=== PATIENT | female | born 1960 | race Caucasian/White ===

== ENCOUNTER → 2016-09-16 | Outpatient (CLI) | payer OTHER | LOC: FIMAGING 08:13 | DX: Z12.31 Encounter for screening mammogram for malignant neoplasm of breast (principal); Z80.3 Family history of malignant neoplasm of breast | CPT/HCPCS: G0202 ==

== ENCOUNTER → 2017-09-18 | Outpatient (CLI) | payer OTHER | LOC: FIMAGING 10:55 | PROVIDERS: ATTEND Family Medicine | DX: Z12.31 Encounter for screening mammogram for malignant neoplasm of breast (principal); Z80.3 Family history of malignant neoplasm of breast ==

== ENCOUNTER 2018-05-31 07:59 | Inpatient (IN) | payer OTHER ==
[2018-05-31] MEDS ORDERED: THROMBIN (BOVINE) 20,000 UNIT VIAL TP ONE (10:49)
[2018-05-31] MEDS ORDERED: CHLORHEXIDINE GLUC HIBICLENS 118 ML BTL TP ONE (10:49)
[2018-05-31] MEDS ORDERED: morphINE SR 15 MG TAB PO ONE (10:49)
[2018-05-31] MEDS ORDERED: BACITRACIN 50,000 UNITS/10 ML SYR IRR ONE (10:49)
[2018-05-31] MEDS ORDERED: morphINE PF 0.2 MG in SYRINGE INTRATHECAL 1 SYR IT ONE (10:49)
[2018-05-31] MEDS ORDERED: GABAPENTIN 300 MG CAP PO ONE (10:49)
[2018-05-31] MEDS ORDERED: ceFAZolin 2 GM/DEXTROSE 100 ML IV ONE (10:49)
[2018-05-31] MEDS ORDERED: CITRATE DEXTROSE SOLN 500 ML BAG ONE (10:49)
[2018-05-31] MEDS ORDERED: BUPIVACAINE/EPI 0.25% 30 ML SDV ONE (10:49)
[2018-05-31] MEDS ORDERED: ACETAMINOPHEN 500 MG TAB PO ONE (10:49)
[2018-05-31] MEDS ORDERED: LR 1,000 ML IV ONE (10:51)
--- NOTE | 2018-05-31 12:00 | PDHPUP ---
History & Physical Update H&P update statement: This history and physical update is based on an assessment of the patient which was completed after admission or registration (within 24 hours), but prior to the surgery/procedure. H&P update: H&P reviewed & patient examined, changes noted (Patient has been having right sided symptoms for 2 weeks and all left sided symptoms have improved. We will change her surgery to right sided TLIFs. Consents signed and sited marked. All questions answered.)
[2018-05-31] MEDS ORDERED: MIDAZOLAM 2 MG/2 ML VIAL IVP ONE (12:08)
--- NOTE | 2018-05-31 12:08 | PDANEPAE ---
ANE Past Medical History - Cardiovascular History Hx Hypertension: No Hx Arrhythmias: No Hx Chest Pain: No Hx Coronary Artery / Peripheral Vascular Disease: No Hx CHF / Valvular Disease: No Hx Palpitations: No - Pulmonary History Hx COPD: No Hx Asthma/Reactive Airway Disease: No Hx Recent Upper Respiratory Infection: Yes Hx Oxygen in Use at Home: No Hx Sleep Apnea: No Sleep Apnea Screening Result - Last Documented: Negative Pulmonary History Comment: SINUS INFECTION 01/2018 TREATED WITH ANTIBIOTICS TRAVELED TO CHEST TREATED WITH INHALER - Neurologic History Hx Cerebrovascular Accident: No Hx Seizures: No Hx Dementia: No - Endocrine History Hx Diabetes: No - Renal History Hx Renal Disorders: No - Liver History Hx Hepatic Disorders: No - Neurological & Psychiatric Hx Hx Neurological and Psychiatric Disorders: No - Cancer History Hx Cancer: No - Congenital Disorder History Hx Congenital Disorders: No - GI History Hx Gastrointestinal Disorders: No - Other Health History Other Health History: SPINAL STENOSIS. LT LEG NT DOWN TO CALF AREA - Chronic Pain History Chronic Pain: Yes (LOWER LUMBAR REGION DOWN LT LEG) - Surgical History Prior Surgeries: KYLEIGH BREAST AUGUMENTATION ANE Review of Systems Review of Systems: - Exercise capacity METS (RN): 4 METS ANE Patient History - Allergies Allergies/Adverse Reactions: No Known Allergies Allergy (Verified 05/22/18 11:06) - Home Medications Home Medications: Cholecalciferol Vit D3 [Vitamin D3 (*)] 1,000 units PO DAILY 05/22/18 [Last Taken 05/01/18] Estradiol [Vivelle-Dot 0.025MG (*)] 0.025 mg TD TuFr@0800 05/22/18 [Last Taken 05/30/18] Herbals/Supplements -Info Only 1 ea PO DAILY 05/22/18 [Last Taken 05/01/18] Progesterone, Micronized [Progesterone] 100 mg PO HS 05/22/18 [Last Taken ] traZODone [traZODONE 50MG (*)] 50 mg PO HS 05/22/18 [Last Taken 05/30/18] - NPO status NPO Since - Liquids (Date): 05/31/18 NPO Since - Liquids (Time): 06:00 NPO Since - Solids (Date): 05/30/18 NPO Since - Solids (Time): 20:00 - Smoking Hx Smoking Status: Never smoked ANE Labs/Vital Signs - Vital Signs Blood Pressure: 145/87 Heart Rate: 61 Respiratory Rate: 16 O2 Sat (%): 98 Height: 172.72 cm Weight: 61.235 kg ANE Physical Exam - Airway Mallampati Score: Class 1 - ASA Status ASA Status: I ANE Anesthesia Plan Anesthesia Plan: general endotracheal anesthesia
[2018-05-31] MEDS ORDERED: fentaNYL 100 MCG/2 ML INJ ONE ×2 (12:21→17:02)
[2018-05-31] MEDS ORDERED: PROPOFOL/EMULSION 500 MG/50 ML BOTTLE IV ONE ×2 (12:21→14:56)
[2018-05-31] MEDS ORDERED: PROPOFOL 200 MG/20 ML VIAL ONE (12:21)
[2018-05-31] MEDS ORDERED: ONDANSETRON 4 MG/2 ML VIAL ONE (12:22)
[2018-05-31] MEDS ORDERED: ROCURONIUM 50 MG/5 ML VIAL ONE (12:22)
[2018-05-31] MEDS ORDERED: METOCLOPRAMIDE 10 MG/2 ML VIAL ONE (12:22)
[2018-05-31] MEDS ORDERED: SUGAMMADEX SODIUM 200 MG/2 ML VIAL IVP ONE ×2 (15:12)
[2018-05-31] MEDS ORDERED: NALOXONE HCL 0.4 MG/ML INJ IVP PRN (17:04)
[2018-05-31] MEDS ORDERED: LR 500 ML IV PRN (17:04)
[2018-05-31] MEDS ORDERED: HYDROmorphONE/DILAUDID 2 MG/ML INJ IVP PRN (17:04)
[2018-05-31] MEDS ORDERED: ONDANSETRON 4 MG/2 ML VIAL IVP PRN ×2 (17:04→20:10)
[2018-05-31] MEDS ORDERED: PROMETHAZINE HCL 25 MG/ML INJ IVP PRN (17:04)
[2018-05-31] MEDS ORDERED: MIDAZOLAM 2 MG/2 ML VIAL IVP PRN (17:05)
--- NOTE | 2018-05-31 17:08 | POSTANESTH ---
Post Anesthetic Evaluation Cardiovascular Status: Normal, Stable Respiratory Status: Normal, Stable Level of Consciousness/Mental Status: Can Participate in Eval Pain Control: Adequate, Prn Tx Ordered Nausea/Vomiting Control: Adequate, Prn Tx Ordered Complications Possibly Related to Anesthesia: None Noted
[2018-05-31] MEDS ORDERED: MIDAZOLAM 2 MG/2 ML VIAL ONE (17:12)
[2018-05-31] MEDS: fentaNYL 100 MCG/2 ML INJ IVP PRN ×3 (17:13→17:37)
[2018-05-31] MEDS ORDERED: HYDROmorphONE/DILAUDID 2 MG/ML INJ ONE (17:18)
--- NOTE | 2018-05-31 18:06 | GOP ---
DATE OF OPERATION: 05/31/2018 SURGEON: Brad Luna MD TIE PULLER: Leslie Borrego PA-C. ANESTHESIA: General. PREOPERATIVE DIAGNOSIS: 1. L3 through L5 lumbar spondylosis with scoliosis. 2. L4-L5 grade 1 spondylolisthesis with severe spinal stenosis. 3. Right lower extremity radiculopathy. 4. Treatment refractory to nonoperative intervention. POSTOPERATIVE DIAGNOSIS: 1. L3 through L5 lumbar spondylosis with scoliosis. 2. L4-L5 grade 1 spondylolisthesis with severe spinal stenosis. 3. Right lower extremity radiculopathy. 4. Treatment refractory to nonoperative intervention. PROCEDURE PERFORMED: 1. Posterior arthrodesis with approach to L3, L4, and L5. 2. Posterolateral fusion with bilateral pedicle screw placement at L3, L4, and L5 from the [employer] Voice 4.5, system. 3. L3-L4 and L4-L5 decompressive laminectomy with bilateral medial facetectomies and foraminotomies. 4. Left-sided L3-L4 facetectomy and transforaminal lumbar interbody fusion with a 7 x 20 mm titanium PEEK elevate cage filled with morselized autograft and allograft. 5. Right-sided L4-5 facetectomy and transforaminal lumbar interbody fusion with a 7 x 23 mm titanium PEEK elevate cage filled with morselized autograft and allograft. 6. Posterolateral fusion on the right between L3-L4 and on the left between L4- 5 with morselized autograft and allograft. 7. Use of intraoperative 3D Stealth navigation. 8. Use of intraoperative fluoroscopy, less than 1 hour physician time. 9. Use of Neuro monitoring. 10. Use of the operative microscope. 11. Injection of preservative-free intrathecal narcotics. FINDINGS: per imaging SPECIMENS: None. ESTIMATED BLOOD LOSS: 150 mL. INDICATIONS: The patient is a 57-year-old woman who presented to my office with left lower extremity radiculopathy for 8 months. She had evidence of severe spondylosis L3 through L5, with severe spondylosis L4-5. After discussion of the risks, benefits, and alternatives, she decided to proceed forth with surgical intervention as described above. On the morning of surgery , she noted that she was having no further left groin or left foot pain and had only right-sided buttock and right ankle pain. After reviewing her films, I decided proceed forth with a left-sided 3-4, right-sided L4-5 foraminal decompression given the degree of stenosis and her symptoms. DESCRIPTION OF PROCEDURE: The patient was brought to the operating theater and underwent general anesthesia without complications. She had Venodynes, DAVID hose and the appropriate lines placed by Anesthesia. She was flipped prone onto the Jagdish table and all bony processes inspected and padded. The lower lumbar region was prepped and draped in usual sterile surgical fashion. A time- out was completed per protocol. The patient received antibiotics within 1 hour of incision. Using lateral fluoroscopy and a spinal needle, we then picked our entry point to the L3 through L5 levels. This was marked in the midline. The incision was infiltrated with Marcaine with epinephrine. The incision was taken with the scalpel blade and using the monopolar, the incision was taken down the midline through the lumbodorsal fascia. A subperiosteal dissection was carried out at transverse processes of L3, L4, and L5. Care was taken to preserve the bilateral L2-3 facet joint. Deep retractors were placed to maintain exposure. We confirmed our level using lateral fluoroscopy. We attached the 3D Stealth navigation clamp to the spinous process of L5 and completed a 3D Stealth navigation spin. Using 3D navigation, we placed the pilot fuel engineer holes for the bilateral pedicle screws at L3, L4, and L5. All holes were manually palpated with no evidence any cortical breaches. We then tapped and placed 6.5 x 35 mm screws bilaterally at L3, 6.5 x 45 mm screws bilaterally at L4 and 6.5 x 40 mm screws bilaterally in L5, all from the [employer] 4.75 system. Another 3D Stealth navigation spin demonstrated good placement of the hardware. At this point, the microscope was brought into field to assist with microscopic dissection and to maintain illumination and magnification. Using a combination of the bur tip on the drill bit, Kerrison punches and Leksell rongeur, we completed a decompressive laminectomy with bilateral medial facetectomies, L3- L4 and L4-5. We completed an aggressive facetectomy on the left side, L3-L4 and the right-side L4-L5. We moved down to the L3-4 level where we distracted the interspace and completed a left-sided L3-4 diskectomy. We prepared the cartilaginous endplates and measured the interbody space. We then placed a 7 x 28 mm titanium PEEK elevate cage filled with morselized autograft and allograft anteriorly and toward the midline. We packed additional morcellized autograft in the disk space for the interbody fusion. We let down the distraction and moved down the right side at L4-5. We distracted the interspace and completed a right-sided L4-5 diskectomy. We prepared the cartilaginous endplates and measured the interbody space. We then placed a 7 x 23 mm titanium PEEK elevate cage filled with morselized autograft and allograft anteriorly and toward the midline. We packed additional morcellized autograft in the disk space for interbody fusion. We let down the distraction and decorticated the bone on the right side between L3-4 and left side L4-5. The wound was irrigated copiously with bacitracin irrigation. We then placed morselized autograft and allograft on the right side between L3-4 and left side L4-5 for posterolateral fusion. We placed 2 lordotic rods into the heads of the screws between L3 and L5 and secured them down with cap screws, which were then tightened to the co op's setting. We injected preservative-free intrathecal narcotics. A drain was left in the subfascial space. The wound then closed in multiple layers including Vicryl sutures for the deep layers and Dermabond for skin. The patient's wounds were dressed sterilely. She was then flipped supine onto the transfer cart. She was awakened, extubated and taken to the recovery room in stable condition. There were no complications and no noted changes on neuromonitoring throughout the procedure. COMPLICATIONS: None. /[id number]/MODL MTDD
[2018-05-31] MEDS ORDERED: LACTULOSE 20 GM/30 ML UDCUP PO PRN (20:10)
[2018-05-31] MEDS ORDERED: MAGNESIUM HYDROXIDE 30 ML UDCUP PO PRN (20:10)
[2018-05-31] MEDS ORDERED: diphenhydrAMINE 25 MG CAP PO PRN (20:10)
[2018-05-31] MEDS ORDERED: BISACODYL 10 MG SUPP PR PRN (20:10)
[2018-05-31] MEDS: ACETAMINOPHEN 500 MG TAB PO SCH (21:36)
[2018-05-31] MEDS: GABAPENTIN 300 MG CAP PO SCH (21:37)
[2018-05-31] MEDS: SENNOSIDES/DOCUSATE SODIUM TAB PO SCH (21:37)
[2018-05-31] MEDS: POLYETHYLENE GLYCOL 3350 17 GM PKT PO SCH (21:38)
[2018-05-31] MEDS: FAMOTIDINE 20 MG TAB PO SCH (21:38)
[2018-05-31] MEDS: PROGESTERONE,MICR 100 MG CAP PO SCH (21:38)
[2018-05-31] MEDS: CEFUROXIME 1,500 MG in NS 50 ML IV SCH (21:40)
[2018-06-01 05:11] LABS: PLATELET COUNT 230 10^3/uL (150-400)
[2018-06-01] MEDS ORDERED: ceFAZolin 2 GM/DEXTROSE 100 ML IV ONE (05:30)
[2018-06-01] MEDS ORDERED: NS 750 ML IV ONE (05:30)
[2018-06-01] MEDS: ACETAMINOPHEN 500 MG TAB PO SCH ×3 (05:38→21:59)
[2018-06-01] MEDS: GABAPENTIN 300 MG CAP PO SCH ×2 (06:16→22:00)
[2018-06-01] MEDS: CEFUROXIME 1,500 MG in NS 50 ML IV SCH (06:17)
[2018-06-01] MEDS: NS 1,000 ML IV SCH ×2 (06:22→19:56)
[2018-06-01] MEDS ORDERED: ESTRADIOL VIVELLE 0.025 MG PATCH TD SCH (08:00)
[2018-06-01] MEDS: ENOXAPARIN 40 MG/0.4 ML SYR SC SCH (08:46)
[2018-06-01] MEDS: FAMOTIDINE 20 MG TAB PO SCH ×2 (08:47→19:58)
[2018-06-01] MEDS: POLYETHYLENE GLYCOL 3350 17 GM PKT PO SCH ×3 (08:47→22:00)
[2018-06-01] MEDS: SENNOSIDES/DOCUSATE SODIUM TAB PO SCH ×2 (08:47→19:58)
[2018-06-01] MEDS: CHOLECALCIFEROL VIT D3 1,000 UNITS TAB PO SCH (08:47)
--- NOTE | 2018-06-01 09:21 | PDMN ---
Medical Necessity Medical necessity: [facility] [place] S820 lumbar fusion INPT only OP: L3/4/5/ TLIF..... 05/31 AUTH [id number] APPROVED CPT 21216 [id number] INPT
[2018-06-01] MEDS ORDERED: NS 500 ML IV ONE ×2 (09:30→16:30)
[2018-06-01] MEDS: oxyCODONE IR 5 MG TAB PO PRN ×5 (10:56→23:14)
--- NOTE | 2018-06-01 11:29 | NEUSURGPN ---
Assessment/Plan: 57 y/o female s/p L3-5 laminectomy, with left sided L3/4 and right sided L4/5 TLIF, PSF L3-5 -Optimize pain management -PT/OT -Post op xrays pending -Will give fluid bolus for hypotension this morning, H:H pending -DVT prophx: TEDs, SCDs, Lovenox okay POD1 -Please notify NS with any change in neuro/motor exam Subjective: low back pain, tolerable with medications. bilateral leg pain improved Objective: NAD A&Ox3 MAEx4 5/5 and equal in BUE and BLE. Dressing c/d/i. YUNG drain serosanguineous Catheter Insertion Date: 06/01/18 - Physician Patient Seen by : Cheryl Neurosurgery Physical Exam - Vitals, I&O, Labs I and O 05/31/18 06/01/18 06/02/18 05:59 05:59 05:59 Intake Total 2500 200 Output Total 330 730 Balance 2170 -530 Weight 61.235 kg Intake: Oral (ml) 700 200 IV Intake (ml) 1800 Output: Urine (ml) 200 600 Bedpan 300 Catheter 200 Toilet 300 YUNG Drain Output (ml) 130 130 #1 Posterior Back Jagdish 130 130 Gallo Other: Number of Voids Bedpan 2 Toilet 1 Post Void Residual Scan Volume (ml) Toilet 692 Vital Signs Temp Pulse Resp BP Pulse Ox 36.9 C 58 L 14 85/48 L 96 06/01/18 07:30 06/01/18 07:30 06/01/18 07:30 06/01/18 07:30 06/01/18 07:30 Laboratory Results 06/01/18 04:42 06/01/18 04:42 ICD10 Worksheet Patient Problems: Problems Problem Status Onset Lumbar stenosis Acute - ICD10 Problem Qualifiers (1) Lumbar stenosis
--- NOTE | 2018-06-01 11:32 | POSTOPPROG ---
Post Op Note Date of Operation: 05/31/18 Surgeon: Brad Luna Bung Remover: ROSS Borrego PAC Anesthesia: GET(General Endotracheal) Pre-op Diagnosis: lumbar stenosis Post-op Diagnosis: Lumbar stenosis Indication: Lumbar stenosis Procedure: L3-5 laminectomy, with left sided L3/4 and right sided L4/5 TLIF, PSF L3-5 Inf/Abcess present in the surg proc area at time of surgery?: No EBL: 50-100 Drains: Jagdish KHAN Addendum - Addendum .: S: Low back, incisional site pain O: NAD A&Ox3 MAEx4 5/5 and equal in BUE and BLE. Dressing c/d/i. YUNG drain serosanguineous 57 y/o female s/p L3-5 laminectomy, with left sided L3/4 and right sided L4/5 TLIF, PSF L3-5 -Optimize pain management -PT/OT -Post op xrays pending -Will give fluid bolus for hypotension this morning, H:H pending -DVT prophx: TEDs, SCDs, Lovenox okay POD1 -Please notify NS with any change in neuro/motor exam
[2018-06-01] MEDS: METHOCARBAMOL 750 MG TAB PO PRN ×2 (14:29→19:57)
--- NOTE | 2018-06-01 16:12 | ASMTCMCOM ---
CM Note CM Note Notes: Pt had surgery for lumbar stenosis. Pt pre-arranged with [facility]. PT rec home, OT eval pending. Nereida with [facility] to discuss insurance with pt before pt decides if she wants HC. Pt resides with spouse. CM to follow. Date Signed: 06/01/2018 04:11 PM Electronically Signed By:SYL Ontiveros
[2018-06-01] MEDS: PROGESTERONE,MICR 100 MG CAP PO SCH (19:59)
[2018-06-02] MEDS: oxyCODONE IR 5 MG TAB PO PRN ×4 (06:31→19:02)
[2018-06-02] MEDS: ACETAMINOPHEN 500 MG TAB PO SCH ×3 (06:32→21:27)
[2018-06-02] MEDS: NS 1,000 ML IV SCH ×2 (06:32→16:11)
[2018-06-02] MEDS: METHOCARBAMOL 750 MG TAB PO PRN ×2 (06:36→21:25)
--- NOTE | 2018-06-02 08:21 | NEUSURGPN ---
Date of Surgery: 05/31/18 Post Op Day: 2 Assessment/Plan: 57 y/o female s/p L3-5 laminectomy, with left sided L3/4 and right sided L4/5 TLIF, PSF L3-5 -limit narcotics given symptomatic hypotension, difficult to optimize pain control -encourage fluids, good oral intake -mobilize -PT/OT -Post op xrays stable JPx1 to full suction, continue today -DVT prophx: TEDs, SCDs, Lovenox okay POD1 -Plan for DC home hopefully tomorrow. -Please notify NS with any change in neuro/motor exam Subjective: still not feeling well, in a great deal of surgical pain and having difficulty controlling, also having issues with hypotension. Leg/groin feeling better but some pain in left thigh since surgery. Objective: VSS mild distress, emotional VSS - last BP 95/58 EOMI, PEARLA MAEx4 11/04= SILT Incision CDI, dressed JPx1, 300 out last 24. Catheter Insertion Date: 06/01/18 - Physician Discussed Patient with : Cheryl Neurosurgery Physical Exam - Vitals, I&O, Labs I and O 06/01/18 06/02/18 06/03/18 05:59 05:59 05:59 Intake Total 2500 2000 Output Total 330 1600 Balance 2170 400 Weight 61.235 kg Intake: Oral (ml) 700 2000 IV Intake (ml) 1800 Output: Urine (ml) 200 1300 Bedpan 300 Catheter 200 Toilet 1000 YUNG Drain Output (ml) 130 300 #1 Posterior Back Jagdish 130 300 Gallo Other: Number of Voids Bedpan 2 Toilet 1 Post Void Residual Scan Volume (ml) Toilet 692 Vital Signs Temp Pulse Resp BP Pulse Ox 37.6 C 65 18 88/52 L 98 06/02/18 07:44 06/02/18 07:44 06/02/18 07:44 06/02/18 07:44 06/02/18 07:44 Laboratory Results 06/01/18 16:30 06/01/18 04:42 ICD10 Worksheet Patient Problems: Problems Problem Status Onset Lumbar stenosis Acute
[2018-06-02] MEDS: SENNOSIDES/DOCUSATE SODIUM TAB PO SCH ×2 (08:53→21:27)
[2018-06-02] MEDS: FAMOTIDINE 20 MG TAB PO SCH ×2 (08:53→21:25)
[2018-06-02] MEDS: POLYETHYLENE GLYCOL 3350 17 GM PKT PO SCH ×3 (08:53→21:25)
[2018-06-02] MEDS: CHOLECALCIFEROL VIT D3 1,000 UNITS TAB PO SCH (08:53)
[2018-06-02] MEDS: ENOXAPARIN 40 MG/0.4 ML SYR SC SCH (08:53)
[2018-06-02] MEDS: GABAPENTIN 300 MG CAP PO SCH ×3 (08:53→21:27)
[2018-06-02] MEDS: ONDANSETRON DISINTEGRATING 4 MG TAB PO PRN (10:52)
[2018-06-02] MEDS: PROGESTERONE,MICR 100 MG CAP PO SCH (21:25)
[2018-06-03] MEDS: NS 1,000 ML IV SCH (00:32)
[2018-06-03] MEDS: oxyCODONE IR 5 MG TAB PO PRN ×5 (02:24→21:27)
[2018-06-03] MEDS: ACETAMINOPHEN 500 MG TAB PO SCH ×3 (08:31→21:31)
[2018-06-03] MEDS: GABAPENTIN 300 MG CAP PO SCH ×3 (08:31→21:30)
[2018-06-03] MEDS: ENOXAPARIN 40 MG/0.4 ML SYR SC SCH (08:33)
[2018-06-03] MEDS: POLYETHYLENE GLYCOL 3350 17 GM PKT PO SCH ×3 (08:34→21:31)
[2018-06-03] MEDS: CHOLECALCIFEROL VIT D3 1,000 UNITS TAB PO SCH (08:34)
[2018-06-03] MEDS: SENNOSIDES/DOCUSATE SODIUM TAB PO SCH ×2 (08:34→21:30)
[2018-06-03] MEDS: FAMOTIDINE 20 MG TAB PO SCH ×2 (08:34→21:30)
[2018-06-03] MEDS: METHOCARBAMOL 750 MG TAB PO PRN ×3 (11:02→21:30)
--- NOTE | 2018-06-03 13:19 | NEUSURGPN ---
Assessment/Plan: 57 y/o female s/p L3-5 laminectomy, with left sided L3/4 and right sided L4/5 TLIF, PSF L3-5 -limit narcotics given symptomatic hypotension, difficult to optimize pain control, will increase meds at night in hopes she will be controlled on orals. -encourage fluids, good oral intake -mobilize -PT/OT -Post op xrays stable JPx1 out today -DVT prophx: TEDs, SCDs, Lovenox okay POD1 -Plan for DC home hopefully Monday. -Please notify NS with any change in neuro/motor exam dw Dr. Luna Subjective: doing well during day but still having uncontrolled pain at night that has required morphine the past two nights for pain control . anxious about going home. Objective: NAD VSS BP 101/62 this am AAOx4 MAEx4, 5/= SILT INcision cdi, JPx1, serosanguineous Catheter Insertion Date: 06/01/18 - Physician Discussed Patient with Dr.: Luna Neurosurgery Physical Exam - Vitals, I&O, Labs I and O 06/02/18 06/03/18 06/04/18 05:59 05:59 05:59 Intake Total 2000 1350 Output Total 1600 750 Balance 400 600 Intake: Oral (ml) 2000 250 IV Infused (ml) 1100 Ns 1,000 ml @ 100 mls/hr 1100 IV CONT SENIA Rx#: [id number] Output: Urine (ml) 1300 700 Bedpan 300 Toilet 1000 700 YUNG Drain Output (ml) 300 50 #1 Posterior Back Jagdish 300 50 Gallo Other: Number of Voids Bedpan 2 Toilet 1 1 1 Post Void Residual Scan Volume (ml) Toilet 692 Vital Signs Temp Pulse Resp BP Pulse Ox 37.3 C 66 17 101/53 L 91 L 06/03/18 11:28 06/03/18 11:28 06/03/18 11:28 06/03/18 11:28 06/03/18 11:28 Laboratory Results 06/01/18 16:30 06/01/18 04:42 ICD10 Worksheet Patient Problems: Problems Problem Status Onset Lumbar stenosis Acute
[2018-06-03] MEDS: PROGESTERONE,MICR 100 MG CAP PO SCH (21:25)
[2018-06-04] MEDS: oxyCODONE IR 5 MG TAB PO PRN ×2 (04:35→11:15)
[2018-06-04] MEDS: METHOCARBAMOL 750 MG TAB PO PRN ×2 (04:37→09:45)
[2018-06-04] MEDS: ACETAMINOPHEN 500 MG TAB PO SCH ×3 (05:47→07:27)
[2018-06-04] MEDS: ONDANSETRON DISINTEGRATING 4 MG TAB PO PRN (07:24)
[2018-06-04 07:44] VITALS: BP 108/71
--- NOTE | 2018-06-04 08:27 | NEUSURGPN ---
Date of Surgery: 05/31/18 Post Op Day: 4 Assessment/Plan: Assessment: 57 y/o female s/p L3-5 laminectomy, with left sided L3/4 and right sided L4/5 TLIF, PSF L3-5 POD #4 Plan: -limit narcotics given symptomatic hypotension, difficult to optimize pain control initially but better now -we increased meds at night in hopes she will be controlled on orals and she is better now -encourage fluids, good oral intake -encourage mobilization -she is better with regards to pain control -continue with PT/OT -post op xrays stable/look good -CDI and YUNG site looks good -DVT prophx: TEDs, SCDs, Lovenox okay POD1 -Plan for DC home today and pt is in agreement -Please notify NS with any change in neuro/motor exam -d/w Dr. Luna -pt understands and agrees Subjective: Awake and alert. NAD. Eating/drinking and voiding. Tolerating brace well. No cadena/neck/chest/abd or gu complaints. Objective: NAD, AFVSS AAOx4 MAEx4, 5/5= SILT Incision cdi, YUNG site looks good Neuro Check Frequency: per routine Urinary Catheter in Place: No Catheter Insertion Date: 06/01/18 - Physician Discussed Patient with : Cheryl Neurosurgery Physical Exam - Vitals, I&O, Labs I and O 06/03/18 06/04/18 06/05/18 05:59 05:59 05:59 Intake Total 1350 1750 Output Total 750 10 Balance 600 1740 Intake: Oral (ml) 250 1750 IV Infused (ml) 1100 Ns 1,000 ml @ 100 mls/hr 1100 IV CONT SENIA Rx#: [id number] Output: Urine (ml) 700 Toilet 700 YUNG Drain Output (ml) 50 10 #1 Posterior Back Jagdish 50 10 Gallo Other: Intake Quantity Yes Sufficient Number of Voids Toilet 1 2 Vital Signs Temp Pulse Resp BP Pulse Ox 36.8 C 62 16 108/71 95 06/04/18 07:44 06/04/18 07:44 06/04/18 07:44 06/04/18 07:44 06/04/18 07:44 Laboratory Results 06/01/18 16:30 06/01/18 04:42 ICD10 Worksheet Patient Problems: Problems Problem Status Onset Lumbar stenosis Acute
--- NOTE | 2018-06-04 09:19 | ASMTLACE ---
LACE Length of stay for Answers: 4-6 days current admission Acuity / Level of Answers: Yes Care: Did the patient have an inpatient admission? # of Emergency department Answers: 0 visits in the last 6 months Score: 7 Date Signed: 06/04/2018 09:19 AM Electronically Signed By:Jess Pelayo RN
[2018-06-04] MEDS: CHOLECALCIFEROL VIT D3 1,000 UNITS TAB PO SCH (09:38)
[2018-06-04] MEDS: GABAPENTIN 300 MG CAP PO SCH (09:38)
[2018-06-04] MEDS: FAMOTIDINE 20 MG TAB PO SCH (09:38)
[2018-06-04] MEDS: ENOXAPARIN 40 MG/0.4 ML SYR SC SCH (09:38)
[2018-06-04] MEDS: POLYETHYLENE GLYCOL 3350 17 GM PKT PO SCH (09:39)
[2018-06-04] MEDS: SENNOSIDES/DOCUSATE SODIUM TAB PO SCH (09:41)
== END 2018-06-04 13:07 | disposition home or self-care (01) | DRG 455 ==
LOC: F3N 10:37
PROVIDERS: ADMIT Neurological Surgery; ATTEND Neurological Surgery
DX: M48.061 Spinal stenosis, lumbar region without neurogenic claudication (principal); M43.16 Spondylolisthesis, lumbar region; I95.81 Postprocedural hypotension; Z79.890 Hormone replacement therapy
CPT/HCPCS: 97116-GP; 97161-GP; 97166-GO; 97530-GP; 97535-GO; C1713; J0690; J0697; J1170; J1650; J2250; J2270; J2274; J2405; J2704; J2765; J3010

== ENCOUNTER → 2018-07-12 | Outpatient (CLI) | payer OTHER | LOC: FLAB 12:17 | PROVIDERS: ATTEND Neurological Surgery | DX: Z98.1 Arthrodesis status (principal) ==

== ENCOUNTER → 2018-08-16 | Outpatient (CLI) | payer OTHER | LOC: FIMAGING 10:56 | PROVIDERS: ATTEND Physician Assistant | DX: Z98.890 Other specified postprocedural states (principal); M51.37 Other intervertebral disc degeneration, lumbosacral region; M41.85 Other forms of scoliosis, thoracolumbar region ==

== ENCOUNTER → 2018-09-19 | Outpatient (CLI) | payer OTHER | LOC: FIMAGING 09:59 | PROVIDERS: ATTEND Family Medicine | DX: Z12.31 Encounter for screening mammogram for malignant neoplasm of breast (principal); Z98.82 Breast implant status; Z80.3 Family history of malignant neoplasm of breast ==

== ENCOUNTER → 2018-11-23 | Outpatient (CLI) | payer OTHER | LOC: FIMAGING 12:23 | PROVIDERS: ATTEND Physician Assistant | DX: M41.25 Other idiopathic scoliosis, thoracolumbar region (principal); M43.16 Spondylolisthesis, lumbar region; M48.02 Spinal stenosis, cervical region; M51.36 Other intervertebral disc degeneration, lumbar region; Z98.1 Arthrodesis status; M51.37 Other intervertebral disc degeneration, lumbosacral region ==